=== PATIENT | female | born 1970 | race Caucasian/White ===

== ENCOUNTER 2018-03-29 15:37 | Emergency (ER) | payer SELFPAY ==
--- NOTE | 2018-03-29 15:53 | DI.RAD_ITS ---
SYMPTOM/DIAGNOSIS: SOB, COUGH, H/O ASTHMA PA AND LATERAL CHEST: Comparison is made with 03/23/14. Heart size and pulmonary vasculature are within normal limits. There is mild prominence of the interstitium bilaterally. No focal consolidating infiltrate, effusion or pneumothorax is identified. Degenerative changes are seen in the spine. IMPRESSION: Mild prominent interstitial markings. This may represent atelectasis or an interstitial pneumonia. Please correlate clinically. Pulmonary edema cannot be excluded.
[2018-03-29 15:57] VITALS: BP 152/61; PULSE 71; RESP 16; TEMP 36.7; O2SAT 97
[2018-03-29 16:21] VITALS: RESP 18; RESP 4
[2018-03-29] MEDS: Albuterol/Ipratropium 3 ML UPD VIAL 9 ML UPD (16:21)
[2018-03-29] MEDS: methylPREDNISolone SUCC 125 MG VIAL IVP (16:21)
[2018-03-29 16:45] LABS: Troponin I < 0.02 ng/mL (0.00-0.06)
--- NOTE | 2018-03-29 17:44 | DI.VRAD_ITS ---
EXAM: XR Chest, 2 Views EXAM DATE/TIME: 03/29/2018 3:55 PM CLINICAL HISTORY: 47 years old, female; Signs and symptoms; Cough; Patient HX: SOB, cough, HX of asthma TECHNIQUE: XR of the chest, 2 views. COMPARISON: CR CHEST 2 VIEWS PA,LAT 03/23/2014 10:53 AM FINDINGS: Lungs: Bibasilar atelectasis Pleural space: Unremarkable. No pleural effusion. No pneumothorax. Heart/Mediastinum: Unremarkable. No cardiomegaly. Bones/joints: Degenerative changes in the thoracic spine IMPRESSION: No acute process Dictated and Authenticated by: Trina Fonseca MD. Ordering:ENMA VILLASEÑOR MD
--- NOTE | 2018-03-29 18:03 | ED.GENADUL_ITS ---
Discharge Plan Disposition Patient Disposition: HOME Condition: Good Discharge Details Chief Complaint: SOB Clinical Impression: Asthma exacerbation Primary Care Provider: NONE,NONE ED Provider: Real dEwards Home Meds and New Rx's Prescriptions: New prednisone 50 mg tablet 50 mg PO DAILY Qty: 5 RF: 0 No Action metronidazole 500 MG tablet 500 mg PO Q12H Qty: 14 RF: 5 levalbuterol tartrate [Xopenex HFA] 15 GM HFA aerosol inhaler 2 puff Inhalation PRN RF: 0 fluticasone-salmeterol [Advair Diskus] 1 PUFF blister with device 1 puff Inhalation BID RF: 0 levonorgestrel [Mirena] 1 EACH intrauterine device 1 ea IU DIRECTED RF: 0 prednisone 20 MG tablet 20 mg PO BID Qty: 10 RF: 0 Discharge Instructions Instructions: Asthma (ED) Additional Instructions: Please take your nebulizer treatments at home every 6 hours. Please continue to take your normal breathing treatments. Please take the steroid as directed. If you notice any worsening of your symptoms, or any new symptoms such as vomiting, diarrhea, fever, chills, shortness of breath, chest pain, numbness, weakness, or fainting , please return immediately to the emergency department for reevaluation. Please follow up with your primary care provider as soon as possible for reassessment and reevaluation. As always, it was a pleasure participating in your medical care today. Discharge Data Discharge Date/Time-TO BE ENTERED AT DEPARTURE: 03/29/18 18:18 Medical Decision Making For a pleasant 47-year-old female who presents today for evaluation of chest tightness, mild cough and wheeze. She has been taking her breathing treatments at home with no significant improvement of her symptoms. She denies any systemic symptoms of fever or chills. Physical exam demonstrates mild wheezes. Chest x-ray was ordered and demonstrates no acute process. Troponin is negative. EKG is benign. After breathing treatment administration and steroids, the patient better. Much. Her her chest tightness is completely resolved, she feels significantly improved. I feel her signs and symptoms correlate clinically with a COPD/asthma exacerbation. Patient will be given steroids for home use. She has multiple refills for her albuterol nebulizer treatments at home, and I recommended that she utilize this every 6 hours, continued her steroids, and has close follow-up with her primary care provider. I have extensively reviewed the treatment plan and discharge instructions with the patient. I have addressed all patient concerns at this time. The patient was made aware of what symptoms to monitor for that would warrant a return to the emergency department. Discussed the plan with the patient, they demonstrate verbal understanding and agreement with our assessment and plan at this time. Chest x-ray results per virtual radiology no acute process. EKG 16: 10 Rate 70, intervals normal, sinus rhythm, no ST elevations or depressions. Inverted T wave in lead III. No Q waves. HPI General Date/Time Provider Initiated Documentation: 03/29/18 15:52 . HPI Narrative: This is a 47-year-old female with a past medical history of reactive airway disease/asthma, and a past surgical history of C- sections, who presents today for evaluation of shortness of breath. The patient states that over the last few days she has had some mild chest tightness , cough with productive white sputum, and wheeze. She has been taking her breathing treatments at home, but with no significant improvement. She denies any fevers or chills. She denies any pleuritic chest pain. She denies any arm neck or shoulder pain. She denies any exertional chest pain. Denies PE risk factors such as recent long car rides, immobilization, recent surgery, prior history of DVT or PE, family history of PE or DVT, morbid obesity, exogenous estrogen and smoking, hemoptysis, history of cancer. Patient denies any tearing sensation in her chest. She denies any systemic symptoms of fever, chills, generalized malaise. Patient has had mild symptoms of an upper respiratory infection with mild congestion, and she states that her 2 children are sick with the same thing. Patient denies any IV or illicit drug use. She denies any tobacco use. She denies any other complaints at this time. Related Data Home Medications Medication Instructions Recorded Confirmed fluticasone-salmeterol [Advair 1 puff INHALATION BID 03/23/14 03/23/14 250/50 Diskus] levalbuterol tartrate [Xopenex Hfa] 2 puff INHALATION PRN 03/23/14 03/23/14 levonorgestrel [Mirena] 1 ea IU DIRECTED 03/23/14 03/23/14 prednisone 20 mg PO BID #10 tab 03/23/14 metronidazole 500 mg PO Q12H #14 tab-cap 04/07/17 prednisone 50 mg PO DAILY #5 tab 03/29/18 Previous Rx's Medication Instructions Recorded prednisone 20 mg PO BID #10 tab 03/23/14 metronidazole 500 mg PO Q12H #14 tab-cap 04/07/17 prednisone 50 mg PO DAILY #5 tab 03/29/18 Allergies Allergy/AdvReac Type Severity Reaction Status Date / Time No Known Allergies Allergy Unverified 04/07/17 15:23 General Stated Complaint: SOB FRANK: 3 Review of Systems Review of Systems 10 point review of systems was performed, pertinent positives and negatives are noted in the history of present illness. [facility] Social History Smoking/Tobacco Use Status: Never Exam Narrative Exam Narrative: 1.Const: Well-nourished, Well-developed, appearing stated age 2.Eyes: PERRL, no conjunctival injection, and symmetrical lids. 3.ENT: Atraumatic external nose and ears. Moist MM. Neck: Symmetric, trachea midline, No thyromegaly. 4.CVS: +S1/S2, No murmurs or gallops. Peripheral pulses 2+ and equal in all extremities. Brisk capillary refill in all extremities. 5.RESP: Unlabored respiratory effort. Minimal wheezes, no rhonchi or rales. 6.GI: Soft, Nontender/Nondistended, No hepatosplenomegaly. No guarding or rebound. 7.MSK: Normocephalic/Atraumatic, Extremities w/o deformity or ttp No cyanosis or clubbing, Normal movement of all extremities 8.Skin: Warm, Dry. No rashes or lesions. 9.Neuro: smash piecer II-XII grossly intact. Sensation grossly intact, no focal neurologic deficits. 10.Psych: (AAO) x3. Appropriate mood and affect Course Vital Signs Temperature 36.7 C 03/29/18 15:57 Pulse 71 03/29/18 15:57 Respiratory Rate 16 03/29/18 15:57 Blood Pressure 152/61 H 03/29/18 15:57 Pulse Oximetry 97 03/29/18 15:57 Temperature 36.7 C 03/29/18 15:57 Temperature Source Skin 03/29/18 15:57 Pulse 71 03/29/18 15:57 Respiratory Rate 18 03/29/18 16:21 Respiratory Effort 03/29/18 15:57 Respiratory Depth Normal 03/29/18 15:57 Respiratory Pattern Normal 03/29/18 15:57 Blood Pressure 152/61 H 03/29/18 15:57 Pulse Oximetry 97 03/29/18 15:57 Oxygen Delivery Method Room Air 03/29/18 16:21 Oxygen Flow Rate 0 03/29/18 16:21 Pain Level 0 03/29/18 15:57 Lab/Test Results Lab/Test Results: Laboratory Tests Range/Units 03/29/18 16:20 Troponin I (0.00-0.06) ng/mL < 0.02
[2018-03-29 18:14] VITALS: BP 132/74; PULSE 89; RESP 16; O2SAT 96
== END 2018-03-29 18:18 | disposition home or self-care (01) ==
PROVIDERS: Emergency Provider Student in an Organized Health Care Education/Training Program
DX: J44.1 Chronic obstructive pulmonary disease with (acute) exacerbation (principal); J45.909 Unspecified asthma, uncomplicated
CPT/HCPCS: 36415; 93005; 94640; 96374; 99285; 71046; 84484; 93010; J2930; J7620

== ENCOUNTER 2019-08-22 16:57 | Emergency (ER) | payer MEDICAID, SELFPAY ==
[2019-08-22 17:11] VITALS: BP 141/74; PULSE 73; RESP 16; TEMP 36.5; O2SAT 98
[2019-08-22 17:16] LABS: Bilirubin Negative (Negative); Blood Trace-lysed (Negative); Clarity Clear (Clear); Glucose Negative (Negative); Ketones Negative (Negative); Leukocyte Esterase Trace (Negative); Nitrite Negative (Negative); Specific Gravity <= 1.005 (1.005-1.025); Urobilinogen 0.2 EU/dL (Up TO 0.2); pH 5.5 (5-8)
[2019-08-22 17:27] LABS: Epithelial Cells Many HPF (Negative)
[2019-08-22 17:28] LABS: Bacteria Few HPF (Negative); C & S Indicated? No/Sq. Contamination; Crystals Negative HPF (Negative); Mucus Negative (Negative)
--- NOTE | 2019-08-22 17:38 | ED.GENADUL_ITS ---
Discharge Plan Disposition Patient Disposition: HOME Condition: Stable Discharge Details Chief Complaint: FlankPain Clinical Impression: Flank pain, Dysuria Primary Care Provider: None,None ED Provider: Monica Wagner Home Meds and New Rx's Prescriptions: Continued levalbuterol tartrate [Xopenex HFA] 15 GM HFA aerosol inhaler 2 puff Inhalation PRN RF: 0 fluticasone propion-salmeterol [Advair Diskus] 1 PUFF blister with device 1 puff Inhalation BID RF: 0 prednisone 20 MG tablet 20 mg PO BID Qty: 10 RF: 0 prednisone 50 mg tablet 50 mg PO DAILY Qty: 5 RF: 0 Discharge Instructions Instructions: Dysuria (ED), Flank Pain (ED) Additional Instructions: Drink plenty of fluids and get plenty of rest. Alternate tylenol and motrin as needed and directed for pain. Follow-up with your primary care doctor in 1 week. Return to the emergency department with any worsening or new concerning symptoms. Stand Alone Forms: Work Release Discharge Data Discharge Date/Time-TO BE ENTERED AT DEPARTURE: 08/22/19 18:50 Discharge Physician: Monica Wagner Medical Decision Making 49-year-old female with a history of asthma and kidney stones presents with right-sided flank pain and dysuria for the past few days. Denies any known injury, hematuria, fever, vomiting, leg pain. Denies cauda equina symptoms. Vitals within normal limits. Afebrile. Patient appears nontoxic. Initial urinalysis done on arrival appears contaminated. A repeat sample was obtained and negative. Patient had admitted to a URI symptoms as well, which appear viral as patient has no significant ENT or respiratory findings on exam. She has no CVA tenderness. Her abdomen is soft and nontender. Discussed with patient at length that differential diagnosis can include UTI, pyelonephritis, kidney stone, muscle strain, shingles, etc. Discussed that as patient's urine sample is negative, presentation can more likely be consistent with kidney stone. She does not appear uncomfortable and she is in no acute distress. Discussed with patient that we can obtain screening labs, place an IV, give fluids and obtain CT to rule out stone but she would rather only a dose of ibuprofen and to go home with plans to return if worse. Discussed that this can cause possible missed diagnoses which may lead to worsening symptoms or disability and she understands and would still like to leave. She demonstrates capacity to make decisions. She is advised to return here with any worsening or new concerning symptoms. Medical Records Medical records reviewed: Yes I reviewed the patient's medical records. Lab Data Lab results reviewed: Yes I reviewed the patient's lab results. Labs: Laboratory Tests Range/Units 08/22/19 08/22/19 17:05 17:40 Urine Color (Yellow) Straw Straw Urine Clarity (Clear) Clear Clear Urine pH (5-8) 5.5 6.5 Ur Specific [place] (1.005-1.025) <= 1.005 1.010 Urine Protein (Negative) mg/dL Negative Negative Urine Ketones (Negative) mg/dL Negative Negative Urine Blood (Negative) Trace-lysed H Trace-intact H Urine Nitrite (Negative) Negative Negative Urine Bilirubin (Negative) Negative Negative Urine Urobilinogen (Up TO 0.2) EU/dL 0.2 0.2 Ur Leukocyte Esterase (Negative) Trace H Negative Urine RBC (0-2) HPF 3-5 H Negative Urine WBC (0-5) HPF 5-10 Negative Ur Epithelial Cells (Negative) HPF Many Negative Urine Crystals (Negative) HPF Negative Negative Urine Bacteria (Negative) HPF Few Negative Urine Casts (Negative) LPF Negative Urine Mucus (Negative) Negative Negative Urine Other (Negative) Rare renal Ur Culture Indicated? No/sq. contamination No Urine Glucose (Negative) mg/dL Negative Negative HPI General Mode of arrival: ambulatory . Date/Time Provider Initiated Documentation: 08/22/19 16:58 . Limitations to Documentation: no limitations . Information obtained by: patient . History of Present Illness 49 year old F presents to the emergency department with the chief complaint of R flank pain, burning with urination, Quality is described as burning, and is localized to the back (R flank) and abdomen (lower abdomen). Patient reports no radiation. Patient started experiencing this day(s) (2) and it has been intermittent. No relieving factors improve symptom(s), No exacerbating factors reported . Patient notes denies confusion, chest pain, cough, diaphoresis, fever/chills, loss of appetite, malaise, nausea/vomiting, rash, seizure, shortness of breath, syncope and weakness. Patient did receive the following treatments prior to arrival, none Related Data Home Medications Medication Instructions Recorded Confirmed fluticasone propion-salmeterol 1 puff INHALATION BID 03/23/14 08/22/19 [Advair Diskus] levalbuterol tartrate [Xopenex HFA] 2 puff INHALATION PRN 03/23/14 08/22/19 prednisone 20 mg PO BID #10 tab 03/23/14 08/22/19 prednisone 50 mg PO DAILY #5 tab 03/29/18 08/22/19 Previous Rx's Medication Instructions Recorded prednisone 20 mg PO BID #10 tab 03/23/14 prednisone 50 mg PO DAILY #5 tab 03/29/18 Allergies Allergy/AdvReac Type Severity Reaction Status Date / Time No Known Allergies Allergy Unverified 08/22/19 17:13 General Stated Complaint: FlankPain FRANK: 4 Review of Systems All systems reviewed & are unremarkable except as noted in HPI and below Constitutional Constitutional: Reports as per HPI, Denies chills and Denies fever(s) Eyes Eyes: Denies blurry vision ENT Ears, Nose, Mouth, and Throat: Denies dizziness, Denies sore throat and Denies throat swelling Cardiovascular Cardiovascular: Denies chest pain and Denies dyspnea Respiratory Respiratory: Denies cough and Denies dyspnea Gastrointestinal Gastrointestinal: Denies abdominal pain, Denies diarrhea and Denies vomiting Genitourinary Genitourinary: Denies hematuria, Reports dysuria and Reports flank pain Musculoskeletal Musculoskeletal: Denies back pain and Denies numbness Integumentary/Breasts Skin/Breast: Denies lesions and Denies rash Neurologic Neurologic: Denies dizziness, Denies focal weakness and Denies numbness Allergic/Immunologic Allergic/Immunologic: Denies throat swelling [facility] Medical History Asthma (Chronic) Kidney stones (Chronic) Surgical History H/O section (Chronic) History of carpal tunnel release (Acute) History of tonsillectomy (Chronic) Social History Smoking/Tobacco Use Status: Never Drug use: Current Sobriety Substance use type: marijuana Do you feel safe in your relationship?: Yes Exam Const General: cooperative, healthy appearing and no acute distress HENMT Head: normal to inspection Ears: hearing grossly normal bilaterally, external ears normal and TM's normal bilaterally General nose exam: external nose normal Face and sinus: normal facial exam and sinus tenderness frontal and maxillary Mouth: oral mucosae normal Throat: posterior oropharynx normal, uvula midline and no peritonsillar masses Eyes General: appearance normal, both eyes and all related structures EOM: EOM intact bilaterally Neck Neck: normal visual inspection and No submandibular swelling Lymphatic: no lymphadenopathy noted Chest Chest: normal inspection of the chest and no tenderness Resp Effort & Inspection: normal respiratory effort and able to speak in complete sentences Auscultation: clear to auscultation bilaterally Cardio Rate: regular rate Rhythm: regular rhythm GI Inspection: normal to inspection Palpation: soft, not firm, not rigid and nontender Auscultation: normal bowel sounds Back/Spine/Pelvis Back: no CVA tenderness Other: Minimal right flank tenderness. No evidence of rash, trauma or erythema. Skin General skin exam: no rashes or lesions noted Neuro General: alert, awake and oriented x3 Cognition: normal cognition Speech: speech normal Motor: muscle tone normal throughout Sensory Exam: no sensory deficits noted Extrem General: normal to inspection, full ROM, normal capillary refill, no calf tenderness bilaterally and no edema Psych Appearance: grossly normal Mental Status: mental status grossly normal Speech and Movement: speech and movement normal Affect: normal affect Course Vital Signs Vital signs: Vital Signs Temperature 97.7 F 08/22/19 17:11 Pulse 73 08/22/19 17:11 Respiratory Rate 16 08/22/19 17:11 Blood Pressure 141/74 H 08/22/19 17:11 Pulse Oximetry 98 08/22/19 17:11 Temperature 97.7 F 08/22/19 17:11 Temperature Source Skin 08/22/19 17:11 Pulse 73 08/22/19 17:11 Respiratory Rate 16 08/22/19 17:11 Respiratory Effort Non-Labored 08/22/19 17:11 Blood Pressure 141/74 H 08/22/19 17:11 Blood Pressure Position Supine 08/22/19 17:11 Pulse Oximetry 98 08/22/19 17:11 Oxygen Delivery Method Room Air 08/22/19 17:11 Oxygen Flow Rate 0 08/22/19 17:11 Pain Level 8 08/22/19 17:11 Lab/Test Results Lab/Test Results: Laboratory Tests Range/Units 08/22/19 17:05 Urine Color (Yellow) Straw Urine Clarity (Clear) Clear Urine pH (5-8) 5.5 Ur Specific [place] (1.005-1.025) <= 1.005 Urine Protein (Negative) mg/dL Negative Urine Ketones (Negative) mg/dL Negative Urine Blood (Negative) Trace-lysed H Urine Nitrite (Negative) Negative Urine Bilirubin (Negative) Negative Urine Urobilinogen (Up TO 0.2) EU/dL 0.2 Ur Leukocyte Esterase (Negative) Trace H Urine RBC (0-2) HPF 3-5 H Urine WBC (0-5) HPF 5-10 Ur Epithelial Cells (Negative) HPF Many Urine Crystals (Negative) HPF Negative Urine Bacteria (Negative) HPF Few Urine Mucus (Negative) Negative Ur Culture Indicated? No/sq. contamination Urine Glucose (Negative) mg/dL Negative
--- NOTE | 2019-08-22 17:47 | NUR.NOTE ---
Nursing Note: Pt UA came back contaminated. Pt was instructed on correct technique to collect a clean catch urine. Pt verbalized understanding and was given another specimen for a clean catch sample. Sent to lab for repeat UA per MD order.
[2019-08-22 17:50] LABS: Bilirubin Negative (Negative); Blood Trace-intact (Negative); Clarity Clear (Clear); Glucose Negative (Negative); Ketones Negative (Negative); Leukocyte Esterase Negative (Negative); Nitrite Negative (Negative); Urobilinogen 0.2 EU/dL (Up TO 0.2); pH 6.5 (5-8)
[2019-08-22 18:00] LABS: Bacteria Negative HPF (Negative); C & S Indicated? No; Casts Negative LPF (Negative); Crystals Negative HPF (Negative); Epithelial Cells Negative HPF (Negative); Mucus Negative (Negative); Other Cells Rare Renal (Negative); RBC Negative HPF (0-2); WBC Negative HPF (0-5)
[2019-08-22] MEDS: Ibuprofen 600 MG TAB PO (19:12)
== END 2019-08-22 18:50 | disposition home or self-care (01) ==
PROVIDERS: Emergency Provider Physician Assistant
DX: M54.5 Low back pain (principal); R30.0 Dysuria; Z87.442 Personal history of urinary calculi
CPT/HCPCS: 81025; 99282; 81003; 81015; 99283

== ENCOUNTER 2020-12-22 08:04 | Emergency (ER) | payer MEDICAID, SELFPAY ==
[2020-12-22 08:17] VITALS: BP 140/69; PULSE 91; RESP 17; TEMP 36.8; O2SAT 99
--- NOTE | 2020-12-22 08:30 | ED.GENADUL_ITS ---
Discharge Plan Disposition Patient Disposition: HOME Condition: Stable Discharge Details Clinical Impression: Pharyngitis Primary Care Provider: None,None ED Provider: Tristan Caal Home Meds and New Rx's Prescriptions: Continued levalbuterol tartrate [Xopenex HFA] 15 GM HFA aerosol inhaler 2 puff Inhalation PRN RF: 0 fluticasone propion-salmeterol [Advair Diskus] 1 PUFF blister with device 1 puff Inhalation BID RF: 0 trazodone 50 mg tablet 50 mg PO DAILY RF: 0 methylphenidate HCl 20 mg tablet 40 mg PO DAILY RF: 0 albuterol sulfate [ProAir HFA] 90 mcg/actuation HFA aerosol inhaler 90 inh INHALATION PRN PRNRF: 0 Discharge Instructions Instructions: Pharyngitis (ED) Additional Instructions: At this time your rapid strep test is negative, strep culture and Covid swab are pending. I recommend that you continue to quarantine until your Covid test has resulted negative, hopefully in the next 2-3 days. Plenty of fluids to avoid dehydration. Owgo-jzi-cnwcwio medication such as Tylenol, Motrin, decongestant, antihistamine, Chloraseptic Washta as directed for symptomatic control. Salt water gargles as tolerated. Please watch for new or worsening symptoms and return to the ER for any concerns. Otherwise I recommend reaching out to your primary care provider on Thursday to discuss your ongoing symptoms and need for outpatient reevaluation. Medical Decision Making 50-year-old female, past history of asthma, presents to the ER today with 8-day history of global headache, T-max over the past week 103, afebrile now, nasal congestion, sore throat, dry cough. She has tried chaq-lfb-gnnqpuj medication with little relief. Daughter developed similar symptoms about 4 days after her symptoms began. Clinically she appears well, nontoxic, hemodynamically stable, afebrile, O2 sat 99% on room air. She has a bilateral minimal TM erythema, nasal congestion, diffuse mild posterior pharynx erythema but no obvious pointing abscess, midline shift, trismus, etc. Lungs are clear to auscultation. She and her daughter are likely sharing the same virus but given her symptoms I do believe obtaining a strep test is appropriate as well as a Covid swab. Given her pharyngeal erythema, will give 10 p.o. Decadron. Rapid strep negative, strep culture and Covid swab pending. Discussed laboratory values with patient and family. Discussed disposition. Will treat virally, symptomatic control, recommend zbao-bfm-joyatmn medication such as Tylenol, Motrin, Chloraseptic spray, antihistamine, decongestant, salt or gargles, etc. Encouraged to return to the ER for new or worsening symptoms, otherwise follow-up with her primary care provider on Thursday when the office is open. She will continue to quarantine until her Cov[facility] test [facility] Patient has no additional questions or concerns and is comfortable with this plan. Medical Records Medical records reviewed: Yes I reviewed the patient's medical records. Lab Data Lab results reviewed: Yes I reviewed the patient's lab results. Labs: 12/22/20 08:20 Tonsil - Not Specified Group A Streptococcus Culture - Pending HPI General Mode of arrival: ambulatory . Date/Time Provider Initiated Documentation: 12/22/20 08:25 . Limitations to Documentation: no limitations . Information obtained by: patient . HPI Narrative: This is a 50-year-old female, past medical history of asthma and renal stones, presenting to the ER for chief complaint of a sore throat. Patient states that she developed symptoms approximately 8 days ago, dull global headache, bilateral ear pain, slightly worse in the left ear, sore throat, nasal congestion, dry cough, T-max a few days ago of 103. She denies chest pain, productive cough, shortness of breath, abdominal pain, change in bowel or bladder function, skin rash. Patient states that she has not been vaccinated for Covid. She has been taking vmpx-gtd-vkojprb medication with little relief. She reports that her daughter developed ear pain and a sore throat approximately 4 days after her symptoms began. She denies recent travel. They did go into new housing, states that the area is somewhat dirty, concerned that she may have caught something there. Related Data Home Medications Medication Instructions Recorded Confirmed fluticasone propion-salmeterol 1 puff INHALATION BID 03/23/14 12/22/20 [Advair Diskus] levalbuterol tartrate [Xopenex HFA] 2 puff INHALATION PRN 03/23/14 12/22/20 albuterol sulfate [ProAir HFA] 90 inh INHALATION PRN PRN 12/22/20 12/22/20 methylphenidate HCl 40 mg PO DAILY 12/22/20 12/22/20 trazodone 50 mg PO DAILY 12/22/20 12/22/20 Allergies Allergy/AdvReac Type Severity Reaction Status Date / Time No Known Allergies Allergy Unverified 08/22/19 17:13 General Stated Complaint: EarProblem FRANK: 5 Review of Systems Constitutional Constitutional: Reports fever(s) and Reports headache(s) Eyes Eyes: Denies eye discharge and Denies irritation ENT Ears, Nose, Mouth, and Throat: Reports otalgia, Reports headache(s), Reports nasal congestion, Denies neck pain and Reports sore throat Cardiovascular Cardiovascular: Denies chest pain and Denies dyspnea Respiratory Respiratory: Reports cough and Denies dyspnea Gastrointestinal Gastrointestinal: Denies abdominal pain Genitourinary Genitourinary: Denies dysuria Musculoskeletal Musculoskeletal: Denies neck pain Integumentary/Breasts Skin/Breast: Denies rash Neurologic Neurologic: Reports headache(s) PFSH Medical History Asthma Kidney stones Surgical History H/O section History of carpal tunnel release History of tonsillectomy Social History Smoking/Tobacco Use Status: Never Smoking risk assessment performed?: Yes Drug use: Current Sobriety Substance use type: marijuana Do you feel safe in your relationship?: Yes Exam Const General: cooperative, healthy appearing, comfortable and no acute distress Orientation: alert and awake [facility] Head: normal to inspection, normocephalic and atraumatic Ears: external ears normal, EAC's normal and TM abnormal erythematous bilaterally (Minimal); not bulging, not with effusion, with no fluid behind the TM, with no loss of landmarks, not obstructed by cerumen, not perforated and not retracted General nose exam: external nose normal and nasal discharge clear Face and sinus: normal facial exam Mouth: moist mucous membranes Throat: uvula midline, posterior oropharynx abnormal erythema (Diffuse mild); no exudates, uvula not displaced and no uvular edema Eyes General: appearance normal, both eyes and all related structures Alignment and Position: alignment normal Periorbital: periorbital findings normal Eyelids: eyelids normal Conjunctivae: conjunctivae normal Sclera: sclerae normal Cornea: corneas normal Pupils: PERRL EOM: EOM intact bilaterally Direct ophthalmoscopy: normal light reflex Neck Neck: normal visual inspection, full ROM, no lymphadenopathy, no meningeal signs, trachea midline, supple and nontender Resp Effort & Inspection: normal respiratory effort and able to speak in complete sentences Auscultation: clear to auscultation bilaterally Cardio Rate: regular rate Rhythm: regular rhythm Skin General skin exam: no rashes or lesions noted Neuro General: patient alert, patient awake, moves all extremities and no focal motor deficits Sensory Exam: no sensory deficits noted Psych Appearance: grossly normal Mental Status: mental status grossly normal Course Vital Signs Vital signs: Vital Signs Temperature 36.8 C 12/22/20 08:17 Pulse 91 H 12/22/20 08:17 Respiratory Rate 17 12/22/20 08:17 Blood Pressure 140/69 12/22/20 08:17 Pulse Oximetry 99 12/22/20 08:17 Temperature 36.8 C 12/22/20 08:17 Temperature Source Temporal Artery Scan 12/22/20 08:17 Pulse 91 H 12/22/20 08:17 Respiratory Rate 17 12/22/20 08:17 Blood Pressure 140/69 12/22/20 08:17 Blood Pressure Position Sitting 12/22/20 08:17 Pulse Oximetry 99 12/22/20 08:17 Oxygen Delivery Method Room Air 12/22/20 08:17 Oxygen Flow Rate 0 12/22/20 08:17 Pain Level 2 12/22/20 08:17
[2020-12-22] MEDS: Dexamethasone 4 MG TAB 10 MG PO (09:02)
[2020-12-23 13:27] LABS: COVID-19 RT-PCR UVMMC Result Negative (Negative)
--- NOTE | 2020-12-24 10:17 | NUR.NOTE ---
1000: patient called requesting COVID result and additional rx called in to her pharmacy patient states she called her pcp who did not have any record of her ER visit from thursday at [facility] patient given COVID result and name of medication given in ER patient will contact pcp and [facility] medical records to have information sent to [facility] Nursing Note:
--- NOTE | 2021-01-01 10:41 | NUR.NOTE ---
Nursing Note: pt called for covid results.
== END 2020-12-22 09:10 | disposition home or self-care (01) ==
PROVIDERS: Emergency Provider Physician Assistant
DX: J02.9 Acute pharyngitis, unspecified (principal); Z20.822 Contact with and (suspected) exposure to COVID-19
CPT/HCPCS: 87880; 99283; U0003; 87081; J8540

== ENCOUNTER 2021-02-28 14:06 | Outpatient (REF) | payer MEDICAID, SELFPAY ==
--- NOTE | 2021-02-28 13:57 | PAPFT_PTH ---
PATIENT: Allyson Morris LOC: [facility] U#:[id number] AGE/SX: 50/F ROOM: RE02/28/[address]: Swapna Kingsley MD : 1970 BED: DIS: 02/28/2021 SPEC #: [id number] RECD: 02/28/21 17:41 STATUS: JOLENE REQ #: [id number] MILAN: 02/28/21 13:[address]: Swapna Kingsley DEPT: [facility] Cytology RECD BY: Chikis Jimenez ENTERED: 02/28/21 17:41 SP TYPE: PAPFT DOLORES DR: None Tissues: 1 - CX/ENDOCX FOR PAP SMEARS Procedures: PAP THIN PREP/[facility] Screening HPV DNA PROBE Comments: [id number]
== END 2021-02-28 14:07 | disposition home or self-care (01) ==
LOC: LBN 14:06
PROVIDERS: Visit Provider Obstetrics & Gynecology
DX: Z12.4 Encounter for screening for malignant neoplasm of cervix (principal); Z11.51 Encounter for screening for human papillomavirus (HPV)
CPT/HCPCS: 88142; 87624

== ENCOUNTER → 2021-11-26 01:41 | Outpatient (CLI) | payer MEDICAID, SELFPAY | PROVIDERS: Visit Provider Nurse Practitioner Women's Health ==

== ENCOUNTER → 2022-02-21 00:09 | Outpatient (CLI) | payer MEDICAID, SELFPAY ==
--- OUTSIDE RECORDS SUMMARY | 2022-02-21 00:10 | XMS_ITS | CCD ---
:1970 Author Care Team Providers Name Role Phone ONEIL ADEN Attending Physician Unavailable ONEIL ADEN Rounding (Secondary) Physician Unavailab le Vital Signs Unknown or Not Available. Allergies Unknown or Not Available. Procedures Unknown or Not Available. History of Immunizations Unknown or Not Available. Problems Unknown or Not Available. Results Unknown or Not Available. Active Medications Unknown or Not Available. Medications Administered During Visit Unknown or Not Available. Encounters Encounter Diagnosis Diagnosis Code Start Date Arthritis of right foot [id number] 11/11/2021 Social History Smoking Status Code Start Date End Date Never smoker [id number] Patient Decision Aids Unknown or Not Available. Discharge Instructions You were admitted to [facility] on 11/11/2021 13:30 with a principal diagnosis of Arthritis of right foot You were discharged from [facility] Should you have any questions prior to d ischarge, please contact a member of your healthcare team. If you have left the spital and have any questions, please contact your primary care physician. Chief Complaint and Reason For Visit Unknown or Not Available. Function Status Unknown or Not Available. Plan of Care Unknown or Not Available. Referral/Transition of Care Unknown or Not Available.
--- OUTSIDE RECORDS SUMMARY | 2022-02-21 00:10 | XMS_ITS | CCD ---
[...] During Visit Unknown or Not Available. Encounters Unknown or Not Available. Social History Smoking Status Code Start Date End Date Never smoker [id number] Patient Decision Aids Unknown or Not Available. Discharge Instructions You were admitted to [facility] You were discharged from [facility] Should you have any questions prior to d ischarge, please contact a member of your healthcare team. If you have left the [facility] and have any questions, please contact your primary care physician. Chief Complaint and Reason For Visit Unknown or Not Available. Function Status Unknown or Not Available. Plan of Care Unknown or Not Available. Referral/Transition of Care Unknown or Not Available.
--- OUTSIDE RECORDS SUMMARY | 2022-02-21 00:10 | XMS_ITS | CCD ---
[...] Code Start Date End Date Never smoker [id number] Patient Decision Aids Unknown or Not Available. Discharge Instructions You were admitted to [facility] You were discharged from [facility] Should you have any questions prior to d ischarge, please contact a member of your healthcare team. If you have left the [facility] and have any questions, please contact your primary care physician. Chief Complaint and Reason For Visit Unknown or Not Available. Function Status Unknown or Not Available. Plan of Care Unknown or Not Available. Referral/Transition of Care Unknown or Not Available.
--- NOTE | 2022-02-21 07:45 | DI.MAMMO_ITS ---
Exam(s) MAMMO SCREENING EXAM: MAMMO SCREENING CLINICAL HISTORY: screening,z12.39 TECHNIQUE: Mammograms were interpreted according to the usual protocol including computer analysis w [email or web address] CAD system, tomosynthesis and C-view imaging. COMPARISON: 2014 FINDINGS: The breasts are composed of scattered fibroglandular densities, Breast Density category B. No suspicious masses or suspicious microcalcifications are seen. No skin thickening or abnormal axillary lymph nodes are seen. There has been no significant change from prior exams. IMPRESSION: BI-RADS Category 1, Negative mammogram Yearly screening mammography is recommended. Breast Density - Category B, scattered fibroglandular densities. A negative radiographic report should not delay biopsy if a dominant or clinically suspicious mass is present. Up to ten percent of cancers are not identified on mammography. A negative report may reinforce clinical impression. Adenosis and dense breasts may obscure an underlying neoplasm. False positive reports average 6 to 10%. Patient will receive a letter notifying them of these results.
== END ==
PROVIDERS: Visit Provider Nurse Practitioner Women's Health
DX: Z12.31 Encounter for screening mammogram for malignant neoplasm of breast (principal)
CPT/HCPCS: 77063; 77067

== ENCOUNTER 2022-03-31 01:40 | Outpatient (CLI) | payer MEDICAID, SELFPAY ==
--- NOTE | 2022-03-31 07:00 | DI.US_ITS ---
Exam(s) US PELVIS TRANSVAGINAL EXAM: US PELVIS TRANSVAGINAL CLINICAL HISTORY: menorrhagia,N92.0 TECHNIQUE: Transabdominal and transvaginal imaging was performed using standard protocol. COMPARISON: No exams were available for comparison FINDINGS: KIDNEYS: Kidneys are symmetric in size. No evidence of renal calculi. No evidence of hydronephrosis. No renal mass or cyst identified. The exam is somewhat limited by patient body habitus. UTERUS: Anteverted. 9.0 x 5.6 x 5.9 cm, scar. Endometrium: 6 millimeters. Myometrium: Heterogeneous. No discrete fibroids. Cervix: Nabothian cyst. OVARIES: Right: Right ovary not visualized. Left: Cyst or mass: None. Prominent veins around left ovary. CUL-DE-SAC: Free fluid: None. IMPRESSION: 1. Heterogeneous myometrium without focal fibroid.. Endometrium unremarkable. 2. Right ovary not visualized. DATA REPOSITORY:
== END 2022-03-31 02:00 ==
PROVIDERS: Visit Provider Nurse Practitioner Family
DX: N92.0 Excessive and frequent menstruation with regular cycle (principal)
CPT/HCPCS: 76830; 76856

== ENCOUNTER 2023-06-23 17:37 | Emergency (ER) | payer MEDICAID, SELFPAY ==
[2023-06-23 17:43] VITALS: BP 199/99; PULSE 67; RESP 18; TEMP 38.1; O2SAT 98
[2023-06-23 17:58] LABS: Bilirubin Negative (Negative); Blood Negative (Negative); Clarity Cloudy (Clear); Glucose Negative (Negative); Ketones Negative (Negative); Leukocyte Esterase Negative (Negative); Nitrite Negative (Negative); Specific Gravity 1.025 (1.005-1.025); Urobilinogen 0.2 mg/dL (Up to 0.2)
--- NOTE | 2023-06-23 18:15 | DI.CT_ITS ---
Exam(s) CT ABDOMEN PELVIS WO/W EXAM: CT ABDOMEN PELVIS WO/W CLINICAL HISTORY: flank pain, fever, neg urine. TECHNIQUE: Imaging Protocol: Axial computed tomography images with coronal and sagittal reformatted images were created and reviewed CONTRAST MATERIAL: Intravenous: Omnipaque-350 100cc Oral: None COMPARISON: No exams were available for comparison FINDINGS: VISUALIZED LUNG BASES: Mild benign appearing increased markings are noted in the lateral basal segmen t of the left lower lobe. There are no pleural effusions.. ABDOMEN: There is no ascites. LIVER: There are no focal hepatic lesions evident. No dilated intrahepatic ducts. GALLBLADDER/BILIARY: No obvious gallbladder pathology. CBD is not dilated. PANCREAS: No evidence of pancreatic mass nor dilatation of the pancreatic duct. SPLEEN: Spleen is not enlarged. No obvious intrasplenic lesions. Splenic and portal veins are paten t. ADRENALS: There is a 1.1 x 1.2 cm nodule in the left adrenal gland. Probably incidental adenoma. Ri ght adrenal gland unremarkable. KIDNEYS:No cysts evident. No solid renal masses. No calculi nor hydronephrosis.. ABDOMINAL AORTA: Abdominal aorta is not enlarged. LYMPH NODES:There is no retroperitoneal nor paraaortic adenopathy. ABDOMINAL WALL: There is anterior abdominal wall right paracentral fat only containing hernia in the lower abdomen-pelvis which exhibits a hernia sac measuring 4.5 cm wide by 3 cm AP by 5 cm cephalocaud al. There is a narrow neck measuring 1 cm. GI: There is no evidence of bowel obstruction, free air, nor abscess. PELVIS: GI: Appendix not identified. No evidence of obvious appendicitis.No evidence of sigmoid diverticulit is. LYMPH NODES: There is no intrapelvic nor inguinal adenopathy. REPRODUCTIVE: Uterus and adnexal regions appear unremarkable. No free fluid in the pelvis. URINARY BLADDER: No calculi nor obvious masses evident OSSEOUS: No fractures and no significant osseous lesions. IMPRESSION: 1. There is an anterior abdominal wall slightly right of center hernia in the pelvis with hernia sac measuring 4.5 cm wide by 3 cm AP x 5 cm cephalocaudal. The neck is narrow, measuring 1 cm. The micky ia does not contain bowel loops nor fluid. There is no bowel obstruction. 2. There is an 11 x 12 mm nodule in the left adrenal gland. Probably incidental adenoma. Recommend follow-up adrenal CT scan in 12 months, earlier if clinically indicated. First read by [facility]. Final report called by myself to ER physician 06/24/2023 8:25 a.m. RADIATION DOSE DELIVERED: Total DLP DATA REPOSITORY: All CT scans at this facility are submitted to the National Radiology Data Registry (NRDR) Dose Index Registry (DIR) with the [employer] (ACR). RADIATION OPTIMIZATION: All CT scans at this facility use at least one of these dose optimization te chniques: automated exposure control; mA and/or kV adjustment per patient size (includes targeted exa ms where dose is matched to clinical indication); or iterative reconstruction.
--- NOTE | 2023-06-23 18:25 | ED.GENADUL_ITS ---
Discharge Plan Disposition Patient Disposition: Home Condition: Stable Discharge Details Clinical Impression: Musculoskeletal back pain Primary Care Provider: Nancy Preston ED Provider: Maryana Cornejo Home Meds and New Rx's Prescriptions: Continued cyanocobalamin (vitamin B-12) 1,000 mcg capsule 1,000 mcg PO DAILY Hold Instructions: Prescription Finished cholecalciferol (vitamin D3) 25 mcg (1,000 unit) capsule 25 mcg PO DAILY levalbuterol tartrate [Xopenex HFA] 15 GM HFA aerosol inhaler 2 puff Inhalation PRN fluticasone propion-salmeterol [Advair Diskus] 1 PUFF blister with device 1 puff Inhalation BID albuterol sulfate [ProAir HFA] 90 mcg/actuation HFA aerosol inhaler 90 inh INHALATION PRN PRN Patient Comments: INHALE 2 PUFFS BY MOUTH EVERY 4 HOURS furosemide 20 mg tablet Patient Comments: TAKE 1 TABLET BY MOUTH EVERY DAY NEEDED Discharge Instructions Instructions: Back Pain (ED) Additional Instructions: Your workup in the emergency department showed no evidence of infection. CAT scan of the abdomen and pelvis with no explanation for your symptoms but there was an incidental finding of a 1.1 cm left adrenal nodule please consider 12- month follow-up with an adrenal CT also visualized was a partially visualized 1.0 cm soft tissue nodule within the outer lower right quadrant of the breast incomplete evaluation on the study please consider nonemergent diagnostic mammogram. Your lab work was unremarkable. Please monitor for source of infection and return for new or worsening symptoms. You can manage your back pain with [id number] pain medication and heat and ice. Referrals: Nancy Preston [Primary Care Provider] - Medical Decision Making Patient presents to the emergency for develop evaluation of right flank pain. 3-day history initially thought to be a pulled muscle. Urinalysis shows no evidence of UTI or blood concerning for a kidney stone. Will obtain IV access give 1 L of IV fluids check CBC CMP lipase proCalcitonin and lactate. Labs reviewed and unremarkable. CT scan ordered with and without a lot of contrast with no evidence of renal stone abscess or other intra abdominal pelvic process to explain her symptoms. Her pain is reproducible so suspect muscle skeletal also noted was temperature of 38.1. She has no cough shortness of breath or other symptoms of infection. White count is minimally elevated 11.7. But with negative Pro-Goran possibly viral. She will be advised to monitor for source of infection and was advised to return to the emergency department sooner for new or worsening symptoms blood pressure and heart rate are normalized CT findings reviewed with patient for outpatient follow up Medical Records Medical records reviewed: Yes I reviewed the patient's medical records. Imaging Data Radiologic Study: Imaging: CT Scan Radiologist's impression: exam(s) PROCEDURE INFORMATION: Exam: CT Abdomen And Pelvis Without And With Contrast Exam date and time: 06/23/2023 7:18 PM Age: 53 years old Clinical indication: Patient HX: Flank pain, fever, neg urine TECHNIQUE: Imaging protocol: Computed tomography of the abdomen and pelvis without and with contrast. Radiation optimization: All CT scans at this facility use at least one of these dose optimization techniques: automated exposure control; mA and/or kV adjustment per patient size (includes targeted exams where dose is matched to clinical indication); or iterative reconstruction. Contrast material: OMNIPAQUE 350; Contrast volume: 100 ml; Contrast route: INTRAVENOUS (IV); COMPARISON: US PELVIS TRANSVAGINAL 03/31/2022 9:47 AM FINDINGS: Lungs: Mild bibasilar atelectasis and/or scarring. Liver: Normal. No mass. Gallbladder and bile ducts: No calcified gallstones. No discrete gallbladder wall thickening. No ductal dilation. Pancreas: Normal. No ductal dilation. Spleen: Normal. No splenomegaly. Adrenal glands: 1.1 cm left adrenal nodule. No right adrenal mass. Kidneys and ureters: Symmetric renal enhancement without mass. No renal calcification. No hydronephrosis. Stomach and bowel: No evidence of bowel obstruction. No focal bowel wall thickening. Appendix: No evidence of acute appendicitis. Intraperitoneal space: No free fluid in the abdomen or pelvis. No free air. Vasculature: No abdominal aortic aneurysm. Lymph nodes: No pathologically enlarged mesenteric or retroperitoneal lymph nodes. Prominent but non pathologically enlarged inguinal lymph nodes. Urinary bladder: Unremarkable as visualized. Reproductive: Unremarkable as visualized. Bones/joints: Mild multilevel degenerative changes of the spine. No acute fracture. Soft tissues: Partially visualized 1.0 cm soft tissue nodule within the outer, lower quadrant of the right breast, incompletely evaluated on this study. IMPRESSION: 1. No acute findings. 2. 1.1 cm left adrenal nodule. Consider 12 month follow-up adrenal CT. (Reference: [facility]) 3. Partially visualized 1.0 cm soft tissue nodule within the outer, lower quadrant of the right breast, incompletely evaluated on this study. Consider follow-up nonemergent diagnostic mammogram. Lab Data Lab results reviewed: Yes I reviewed the patient's lab results. Labs: Laboratory Tests Range/Units 06/23/23 06/23/23 17:48 18:37 WBC (4.4-10.8) 10^3/uL 11.78 H RBC (3.93-5.22) 10^6/uL 4.56 Hgb (11.2-15.7) g/dL 13.0 Hct (36.0-46.0) % 39.2 MCV (80-95) fL 86 MCH (27.0-33.0) pg 28.5 MCHC (32.0-36.0) % 33.2 RDW (11.7-14.6) % 13.5 Plt Count (130-400) 10^3/uL 188 MPV (8.0-11.0) fL Immature Gran % 0.3 Neutrophils % 64.4 Lymphocytes % 25.1 Monocytes % 5.9 Eosinophils % 3.7 Basophils % 0.6 Nucleated RBC % (0.0-0.3) % 0.0 Absolute Neutrophils (1.2-6.7) 10^3/uL 7.59 H Absolute Lymphocytes (1.2-3.4) 10^3/uL 2.96 Absolute Monocytes (0.1-0.8) 10^3/uL 0.70 Absolute Eosinophils (0.0-0.7) 10^3/uL 0.44 Absolute Basophils (0.0-0.2) 10^3/uL 0.07 VBG Lactate (0.6-1.4) mmol/L 1.0 Sodium (136-145) mmol/L 139 Potassium (3.5-5.1) mmol/L 3.8 Chloride (98-107) mmol/L 104 Carbon Dioxide (21.0-32.0) mmol/L 28.2 Anion Gap (3-11) mmol/L 6.8 BUN (7-18) mg/dL 10 Creatinine (0.55-1.02) mg/dL 0.7 Est GFR (CKD-EPI 2020) (mL/min/1.73m2) 103.35 Glucose (74-106) mg/dL 99 Calcium (8.5-10.1) mg/dL 8.8 Magnesium (1.8-2.4) mg/dL 2.0 Total Bilirubin (0.2-1.0) mg/dL 0.3 AST (15-37) U/L 13 L ALT (14-59) U/L 20 Alkaline Phosphatase (46-116) U/L 89 Total Protein (6.4-8.2) g/dL 7.8 Albumin (3.4-5.0) g/dL 3.4 Lipase (16-77) U/L 27 Procalcitonin ng/mL < 0.1 Urine Color (Yellow) Yellow Urine Clarity (Clear) Cloudy Urine pH (5-8) 6.0 Ur Specific [place] (1.005-1.025) 1.025 Urine Protein (Negative) mg/dL Negative Urine Ketones (Negative) mg/dL Negative Urine Blood (Negative) Negative Urine Nitrite (Negative) Negative Urine Bilirubin (Negative) Negative Urine Urobilinogen (Up to 0.2) mg/dL 0.2 Ur Leukocyte Esterase (Negative) Negative Urine Glucose (Negative) mg/dL Negative HPI General Mode of arrival: ambulatory . Date/Time Provider Initiated Documentation: 06/23/23 18:02 . Limitations to Documentation: no limitations . Information obtained by: patient . HPI Narrative: 3-day history of right flank pain. Denies fever or chills states she is na useated today and does not feel well states initially she thought that it was a pulled muscle and has been using ibuprofen and heat but states that has not been effective. Denies similar symptoms. Denies changes in bowel or bladder. Is able to tolerate p.o. She denies any trauma to the area there is been no rashes or lesions Related Data Home Medications Medication Instructions Recorded Confirmed fluticasone 250 mcg-salmeterol 50 1 puff inhalation BID 03/23/14 06/23/23 mcg/dose blistr powdr for inhalation (Advair Diskus) levalbuterol tartrate 45 2 puff inhalation PRN 03/23/14 06/23/23 mcg/actuation aerosol inhaler (Xopenex HFA) albuterol sulfate 90 mcg/actuation 90 inh inhalation PRN PRN 12/22/20 06/23/23 aerosol inhaler (ProAir HFA) cholecalciferol (vitamin D3) 25 25 mcg PO DAILY 02/28/22 06/23/23 mcg (1,000 unit) capsule cyanocobalamin (vitamin B-12) 1,000 mcg PO DAILY 02/28/22 06/23/23 1,000 mcg capsule furosemide 20 mg tablet mg 06/23/23 Allergies Allergy/AdvReac Type Severity Reaction Status Date / Time No Known Allergies Allergy Verified 06/23/23 17:59 General Stated Complaint: Nk/Back Pain FRANK: 3 Review of Systems All systems reviewed & are unremarkable except as noted in HPI and below PFSH All Active Problems (Updated 06/23/23 @ 20:37 by Maryana Cornejo NP) Musculoskeletal back pain (Acute) Perimenopausal menorrhagia (Acute) Medical History (Updated 06/23/23 @ 20:37 by Maryana Cornejo NP) Pharyngitis Asthma Kidney stones Surgical History History of carpal tunnel release History of tonsillectomy H/O section Social History Smoking/Tobacco Use Status: Never Smoking risk assessment performed?: Yes Alcohol Intake: current Alcohol Intake frequency: a few times a month Alcohol type: beer and hard liquor Drug use: Daily Substance use type: marijuana Details: for anxiety Housing: house Do you feel safe at home: Yes Do you feel safe in your relationship?: Yes Exam Narrative Exam Narrative: Morbidly obese female of stated age in no acute distress head is atraumatic oral mucosa is moist neck is supple no JVD cardiovascular regular rate and rhythm respirations are even and unlabored abdomen is soft nontender with positive bowel sounds extremities are without edema skin with no rashes or lesions neuro she is awake alert oriented no focal deficits. Psychiatric normal mood and affect Course Vital Signs Vital signs: Vital Signs Temperature 38.1 C H 06/23/23 17:43 Pulse 67 06/23/23 17:43 Respiratory Rate 18 06/23/23 17:43 Blood Pressure 199/99 H 06/23/23 17:43 Pulse Oximetry 98 06/23/23 17:43 Temperature 38.1 C H 06/23/23 17:43 Temperature Source Temporal Artery Scan 06/23/23 17:43 Pulse 67 06/23/23 17:43 Respiratory Rate 18 06/23/23 17:43 Respiratory Effort Normal, Non-Labored 06/23/23 18:02 Blood Pressure 199/99 H 06/23/23 17:43 Blood Pressure Position Sitting 06/23/23 17:43 Pulse Oximetry 98 06/23/23 17:43 Oxygen Delivery Method Room Air 06/23/23 17:43 Oxygen Flow Rate 0 06/23/23 17:43 Lab/Test Results Lab/Test Results: Laboratory Tests Range/Units 06/23/23 17:48 Urine Color (Yellow) Yellow Urine Clarity (Clear) Cloudy Urine pH (5-8) 6.0 Ur Specific [place] (1.005-1.025) 1.025 Urine Protein (Negative) mg/dL Negative Urine Ketones (Negative) mg/dL Negative Urine Blood (Negative) Negative Urine Nitrite (Negative) Negative Urine Bilirubin (Negative) Negative Urine Urobilinogen (Up to 0.2) mg/dL 0.2 Ur Leukocyte Esterase (Negative) Negative Urine Glucose (Negative) mg/dL Negative PAWSS Have you Been Recently Intoxicated or Drunk Within the Last 30 days?: No Have you Ever Experienced Previous Episodes of Alcohol Withdrawal?: No Have you ever Experienced Withdrawal Seizures?: No Have you ever Experienced Delirium Tremens(DT)s?: No Have you ever undergone Alcohol Rehabilitation Treatment (i.e, inpt ot outpatient treatment programs)?: No Have you ever Experienced Blackouts?: No Have you ever Combined Alcohol with other Downers within the last 90 days?: No Have you ever Combined Alcohol with any other Substance of Abuse during the last 90 days?: No Positive Blood Alcohol level on Presentation? [PCS.BAL]: No Evidence of Increased Autonomic Activity (i.e. HR>120, tremor, sweating, agitation, nausea)?: No Result: 0
[2023-06-23 18:26] VITALS: BP 112/68
[2023-06-23] MEDS: Normal Saline 1,000 ML 1000 ML IV (18:53)
[2023-06-23] MEDS: Prochlorperazine 10 MG/2 ML VIAL IVP (18:53)
[2023-06-23] MEDS: Ketorolac 30 MG/ML VIAL IVP (18:53)
[2023-06-23 18:55] LABS: Abs Immature Grans 0.03 10^3/uL (0.0-0.06); Absolute Basophil Count 0.07 10^3/uL (0.0-0.2); Absolute Lymphocyte Count 2.96 10^3/uL (1.2-3.4); Absolute Neutrophil Count 7.59 10^3/uL (1.2-6.7); Basophils % 0.6; Eosinophils % 3.7; HCT 39.2 % (36.0-46.0); Immature Grans % 0.3; Lymphocytes % 25.1; MCH 28.5 pg (27.0-33.0); MCHC 33.2 % (32.0-36.0); MCV 86 fL (80-95); Monocytes % 5.9; Neutrophils % 64.4; Platelet Count 188 10^3/uL (130-400); RBC 4.56 10^6/uL (3.93-5.22); RDW 13.5 % (11.7-14.6); RDW-SD 42.4 fL; WBC 11.78 10^3/uL (4.4-10.8)
[2023-06-23 18:59] LABS: Absolute Eosinophil Count 0.44 10^3/uL (0.0-0.7)
[2023-06-23 19:05] LABS: ALT 20 U/L (14-59); AST 13 U/L (15-37); Albumin 3.4 g/dL (3.4-5.0); Alkaline Phosphatase 89 U/L (46-116); Anion Gap 6.8 mmol/L (3-11); BUN 10 mg/dL (7-18); Bilirubin, Total 0.3 mg/dL (0.2-1.0); CO2 28.2 mmol/L (21.0-32.0); CREATININE 0.7 mg/dL (0.55-1.02); Calcium 8.8 mg/dL (8.5-10.1); Chloride 104 mmol/L (98-107); Estimated GFR 103.35 (mL/min/1.73m2); Glucose 99 mg/dL (74-106); Lipase 27 U/L (16-77); Potassium 3.8 mmol/L (3.5-5.1); Sodium 139 mmol/L (136-145); Total Protein 7.8 g/dL (6.4-8.2)
[2023-06-23] MEDS: Omnipaque 350 MG/ML 100 ML BTL IJ (19:14)
[2023-06-23] MEDS: Normal Saline Flush 10 ML SYR IVP (19:15)
[2023-06-23] MEDS: Normal Saline - Diluent 50 ML VIAL IJ (19:15)
[2023-06-23 19:41] LABS: Procalcitonin < 0.1 ng/mL
--- NOTE | 2023-06-23 20:19 | DI.VRAD_ITS ---
PROCEDURE INFORMATION: Exam: CT Abdomen And Pelvis Without And With Contrast Exam date and time: 06/23/2023 7:18 PM Age: 53 years old Clinical indication: Patient HX: Flank pain, fever, neg urine TECHNIQUE: Imaging protocol: Computed tomography of the abdomen and pelvis without and with contrast. Radiation optimization: All CT scans at this facility use at least one of these dose optimization techniques: automated exposure control; mA and/or kV adjustment per patient size (includes targeted exams where dose is matched to clinical indication); or iterative reconstruction. Contrast material: OMNIPAQUE 350; Contrast volume: 100 ml; Contrast route: INTRAVENOUS (IV); COMPARISON: US PELVIS TRANSVAGINAL 03/31/2022 9:47 AM FINDINGS: Lungs: Mild bibasilar atelectasis and/or scarring. Liver: Normal. No mass. Gallbladder and bile ducts: No calcified gallstones. No discrete gallbladder wall thickening. No ductal dilation. Pancreas: Normal. No ductal dilation. Spleen: Normal. No splenomegaly. Adrenal glands: 1.1 cm left adrenal nodule. No right adrenal mass. Kidneys and ureters: Symmetric renal enhancement without mass. No renal calcification. No hydronephrosis. Stomach and bowel: No evidence of bowel obstruction. No focal bowel wall thickening. Appendix: No evidence of acute appendicitis. Intraperitoneal space: No free fluid in the abdomen or pelvis. No free air. Vasculature: No abdominal aortic aneurysm. Lymph nodes: No pathologically enlarged mesenteric or retroperitoneal lymph nodes. Prominent but non pathologically enlarged inguinal lymph nodes. Urinary bladder: Unremarkable as visualized. Reproductive: Unremarkable as visualized. Bones/joints: Mild multilevel degenerative changes of the spine. No acute fracture. Soft tissues: Partially visualized 1.0 cm soft tissue nodule within the outer, lower quadrant of the right breast, incompletely evaluated on this study. IMPRESSION: 1. No acute findings. 2. 1.1 cm left adrenal nodule. Consider 12 month follow-up adrenal CT. (Reference: [facility]) 3. Partially visualized 1.0 cm soft tissue nodule within the outer, lower quadrant of the right breast, incompletely evaluated on this study. Consider follow-up nonemergent diagnostic mammogram. REFERENCES: Sundeep CERNA et al. Management of Incidental Adrenal Masses: A White Paper of the ACR Incidental Findings Committee. J Am Chayo Radiol. 2017;14(8):3507-2391. Dictated and Authenticated by: Reid Silver MD. Ordering:JAMIE Mijares MD
--- NOTE | 2023-06-24 08:35 | NUR.NOTE ---
Accessed Pt chart to look up Pts phone number for Dr Grimes
== END 2023-06-23 20:49 | disposition home or self-care (01) ==
PROVIDERS: Emergency Medicine; Emergency Provider Nurse Practitioner Acute Care; PCP Plastic Surgery
DX: M54.50 Low back pain, unspecified (principal); K46.9 Unspecified abdominal hernia without obstruction or gangrene
CPT/HCPCS: 36415; 80053; 83690; 84145; 96361; 96374; 96375; 99285; 74178; 81003; 83605; 83735; 85025; 99284; J0780; J1885; J3490